=== PATIENT | female | born 1995 | race Caucasian/White ===

== ENCOUNTER 2016-07-13 09:56 | Emergency (ER) | payer OTHER ==
[~2016-07-13] VITALS: Ht 154.9 cm; Wt 66.4 kg
[2016-07-13 09:59] VITALS: TEMP 36.9; Ht 154.9 cm; Wt 66.4 kg
[2016-07-13] MEDS ORDERED: BCPILLS PO (10:22)
[2016-07-13] MEDS ORDERED: PHEN1CAP5 PO (10:22)
[2016-07-13] MEDS ORDERED: KETOROLAC TROMETHAMINE 30 MG/ML VIAL IV STA (10:25)
[2016-07-13] MEDS ORDERED: SODIUM CHLORIDE 0.9% 1000ML 1,000 ML IV STA (10:25)
[2016-07-13] MEDS ORDERED: DEXAMETHASONE SOD INJ 10 MG/ML VIAL IV ONE (10:30)
[2016-07-13] MEDS ORDERED: CLINDAMYCIN IV 900 MG in DEXTROSE 5% ADD-VANTAGE 100ML 100 ML IV ONE (10:30)
[2016-07-13 10:43] VITALS: O2SAT 98
[2016-07-13 11:07] LABS: URINE APPEARANCE CLEAR (CLEAR); URINE BILIRUBIN NEG (NEG); URINE COLOR YELLOW; URINE EPITHELIAL CELL AUTO >30 /lpf (0-5); URINE NITRITE NEG (NEG); URINE SPECIFIC GRAVITY 1.009 (1.000-1.030); UROBILINOGEN NEG (NEG)
[2016-07-13 11:10] LABS: MANUAL MICROSCOPIC REQUIRED? NO; REVIEW REQ? NO
[2016-07-13 11:19] LABS: CREATININE 0.81 mg/dl (0.60-1.20); POTASSIUM 3.8 mmol/L (3.5-5.1)
[2016-07-13 11:22] LABS: BASO % 0.1 %; BASO ABS # 0.01 K/uL (0-0.2); COMPLETE YES; HEMATOCRIT 40.9 % (37-47); IG% 0.3 %; LYMPH % 5.3 %; LYMPH ABS # 0.79 K/uL (1.2-3.4); MEAN CELL VOLUME 86.3 fL (80-100); MEAN CORPUSCULAR HEMOGLOBIN 30.2 pg (25-34); MONO % 3.6 %; NEUT % 90.7 %; PLATELET COUNT 257 K/uL (130-400); RED BLOOD COUNT 4.74 M/uL (4.2-5.4); WHITE BLOOD COUNT 14.96 K/uL (4.8-10.8)
[2016-07-13 11:39] VITALS: BP 105/67; PULSE 118; O2SAT 95
[2016-07-13] MEDS ORDERED: HYDR5SYP11 PO (11:48)
[2016-07-13] MEDS ORDERED: CLIN150C PO (11:48)
--- NOTE | 2016-07-13 11:56 | DIAGNOSTIC IMAGING REPORT ---
SOFT TISSUE NECK CLINICAL HISTORY: Pt c/o tonsilitis. Sore throat. COMPARISON STUDY: None. FINDINGS: AP and lateral views of the neck were submitted for review. The trachea is midline and is pain. The lung apices are clear. The contours of the hypopharynx are within normal limits. The epiglottis and prevertebral soft tissues are normal in thickness. No radiopaque foreign bodies. The C2-C3 vertebral bodies and facets appear fused. IMPRESSION: The contours of the hypopharynx are within normal limits. Electronically signed by: Michael Isaac M.D. 07/13/2016 11:54 AM Dictated Date/Time: 07/13/2016 11:53 AM
--- NOTE | 2016-07-13 13:15 | EMERGENCY ROOM VISIT NOTE ---
History Report prepared by Hayes: Jaci Mar Under the Supervision of: Dr. Abdulaziz Cole M.D. First contact with patient: 10:03 Chief Complaint: SORETHROAT Stated Complaint: SORETHROAT History of Present Illness The patient is a 20 year old female who presents to the Emergency Room with complaints of a worsening sore throat since last evening. Currently, patient rates her discomfort as a 10/10, which increases with attempts of swallowing. The patient visited [facility] for her symptoms this morning, and was given 2 Tylenol as her temperature was found to be elevated at 103F. During her visit, she was tested for strep throat and influenza, which she states were negative, however, she was then referred to the ED as they noticed that her tonsils appeared to be bleeding. She does note the taste of blood when swallowing. Patient states that her cervical lymph nodes are swollen and tender, but she denies pain or stiffness to her posterior neck. She also denies rhinorrhea, cough, chest pain, shortness of breath, abdominal pain, nausea, vomiting, diarrhea or urinary symptoms. Source of History: patient Onset: last evening Position: throat Symptom Intensity: 10/10 Quality: other (sore) Timing: worsening Modifying Factors (Worsening): other (swallowing) Associated Symptoms: + fevers, No SOB, No abdominal pain, No chest pain, No diarrhea, No nausea, No neck pain (but has pain and swelling to cervical lymph nodes), No urinary symptoms, No vomiting Review of Systems See HPI for pertinent positives & negatives. A total of 10 systems reviewed and were otherwise negative. Past Medical & Surgical Medical Problems: (1) HTN (hypertension) Surgical Problems: (1) History of appendectomy Family History Diabetes mellitus Hypertension Social History Smoking Status: Never Smoker Marital Status: single Housing Status: lives with roommate Occupation Status: [employer] student Current/Historical Medications Scheduled Control Pills ( Control Pills), 1 TAB PO DAILY Clindamycin Hcl (Cleocin), 300 MG PO QID Phenylephrine-Chlorpheniramine ([place] Plus Cold &), 2 CAP PO DIRECTED Scheduled PRN Hydrocodone W/ Homatropine (Hycodan 5/1.5MG 5 Ml), 5 ML PO HS PRN for Pain Allergies Coded Allergies: No Known Allergies (Unverified , 07/13/16) Physical Exam Vital Signs Date Time Temp Pulse Resp B/P Pulse Ox O2 Delivery O2 Flow Rate FiO2 07/13/16 11:39 118 18 105/67 95 Room Air 07/13/16 10:59 126 07/13/16 10:43 98 Room Air 07/13/16 09:59 36.9 124 20 119/79 98 Room Air 07/13/16 09:59 98 Room Air Physical Exam GENERAL: Patient is a healthy-appearing well-nourished HEAD: Normocephalic atraumatic EYES: Ocular movements intact pupils equal and react to light OROPHARYNX: Able to swallow own saliva. Hemorrhagic blisters present on the tonsils, bilaterally. No active bleeding. No evidence of abscess. NECK: Anterior lymphadenopathy along the cervical chains. No evidence of meningitis or encephalitis. CHEST: Good equal expansion LUNGS: Clear and equal to auscultation CARDIAC: Normal S1 and S2 ABDOMEN: Soft nontender no guarding BACK: No CVA tenderness EXTREMITIES: No pain upon palpation normal muscle strength in all groups no clubbing cyanosis or edema NEURO: Patient is following commands is answering questions appropriately. Alert and oriented x3 Cranial Nerves 2-12 grossly intact Medical Decision & Procedures ER Provider Diagnostic Interpretation: X-ray results as stated below per interpretation by me and the radiologist: SOFT TISSUE NECK CLINICAL HISTORY: Pt c/o tonsilitis. Sore throat. COMPARISON STUDY: None. FINDINGS: AP and lateral views of the neck were submitted for review. The trachea is midline and is pain. The lung apices are clear. The contours of the hypopharynx are within normal limits. The epiglottis and prevertebral soft tissues are normal in thickness. No radiopaque foreign bodies. The C2-C3 vertebral bodies and facets appear fused. IMPRESSION: The contours of the hypopharynx are within normal limits. Electronically signed by: Michael Isaac M.D. 07/13/2016 11:54 AM Dictated Date/Time: 07/13/2016 11:53 AM Laboratory Results 07/13/16 10:49 Red Blood Count 4.74, Mean Corpuscular Volume 86.3, Mean Corpuscular Hemoglobin 30.2, Mean Corpuscular Hemoglobin Concent 35.0, Mean Platelet Volume 10.0, Neutrophils (%) (Auto) 90.7, Lymphocytes (%) (Auto) 5.3, Monocytes (%) (Auto) 3.6, Eosinophils (%) (Auto) 0.0, Basophils (%) (Auto) 0.1, Neutrophils # (Auto) 13.58, Lymphocytes # (Auto) 0.79, Monocytes # (Auto) 0.54, Eosinophils # (Auto) 0.00, Basophils # (Auto) 0.01 07/13/16 10:49 Test 07/13/16 10:49 White Blood Count 14.96 K/uL (4.8-10.8) Red Blood Count 4.74 M/uL (4.2-5.4) Hemoglobin 14.3 g/dL (12.0-16.0) Hematocrit 40.9 % (37-47) Mean Corpuscular Volume 86.3 fL (80-100) Mean Corpuscular Hemoglobin 30.2 pg (25-34) Mean Corpuscular Hemoglobin Concent 35.0 g/dl (32-36) Platelet Count 257 K/uL (130-400) Mean Platelet Volume 10.0 fL (7.4-10.4) Neutrophils (%) (Auto) 90.7 % Lymphocytes (%) (Auto) 5.3 % Monocytes (%) (Auto) 3.6 % Eosinophils (%) (Auto) 0.0 % Basophils (%) (Auto) 0.1 % Neutrophils # (Auto) 13.58 K/uL (1.4-6.5) Lymphocytes # (Auto) 0.79 K/uL (1.2-3.4) Monocytes # (Auto) 0.54 K/uL (0.11-0.59) Eosinophils # (Auto) 0.00 K/uL (0-0.5) Basophils # (Auto) 0.01 K/uL (0-0.2) RDW Standard Deviation 40.2 fL (36.4-46.3) RDW Coefficient of Variation 12.6 % (11.5-14.5) Immature Granulocyte % (Auto) 0.3 % Immature Granulocyte # (Auto) 0.04 K/uL (0.00-0.02) Urine Color YELLOW Urine Appearance CLEAR (CLEAR) Urine pH 6.0 (4.5-7.5) Urine Specific Seanor 1.009 (1.000-1.030) Urine Protein NEG (NEG) Urine Glucose (UA) NEG (NEG) Urine Ketones NEG (NEG) Urine Occult Blood NEG (NEG) Urine Nitrite NEG (NEG) Urine Bilirubin NEG (NEG) Urine Urobilinogen NEG (NEG) Urine Leukocyte Esterase TRACE (NEG) Urine WBC (Auto) 1-5 /hpf (0-5) Urine RBC (Auto) 0-4 /hpf (0-4) Urine Hyaline Casts (Auto) 1-5 /lpf (0-5) Urine Epithelial Cells (Auto) >30 /lpf (0-5) Urine Bacteria (Auto) 2+ (NEG) Anion Gap 13.0 mmol/L (3-11) Est Creatinine Clear Calc Drug Dose 97.4 ml/min Estimated GFR () 122.0 Estimated GFR (Non- 105.3 BUN/Creatinine Ratio 14.0 (10-20) Calcium Level 10.0 mg/dl (8.5-10.1) Total Bilirubin 0.4 mg/dl (0.2-1) Direct Bilirubin 0.1 mg/dl (0-0.2) Aspartate Amino Transf (AST/SGOT) 10 U/L (15-37) Alanine Aminotransferase (ALT/SGPT) 21 U/L (12-78) Alkaline Phosphatase 56 U/L (45-117) Total Protein 8.5 gm/dl (6.4-8.2) Albumin 4.3 gm/dl (3.4-5.0) Monoscreen NEG (NEG) Labs reviewed by ED physician. Medications Administered Medications (Trade) Dose Ordered Sig/Marvin Route Start Time Stop Time Status Last Admin Dose Admin Sodium Chloride (Nss 1000ml) 1,000 ml @ 999 mls/hr Q1H1M STAT IV 07/13/16 10:25 07/13/16 11:25 DC 07/13/16 10:48 999 MLS/HR Ketorolac Tromethamine (Toradol Inj) 30 mg NOW STAT IV 07/13/16 10:25 07/13/16 10:28 DC 07/13/16 10:47 30 MG Dexamethasone Sodium Phosphate 10 mg 10 mg NOW ONCE IV 07/13/16 10:30 07/13/16 10:31 DC 07/13/16 10:47 10 MG Clindamycin Phosphate/Dextrose (Cleocin Iv/ Dextrose Add-Hiram 100ML) 106 ml @ 100 mls/hr ONE ONCE IV 07/13/16 10:30 07/13/16 11:33 DC 07/13/16 10:47 100 MLS/HR ED Course 1005: Past medical records reviewed. The patient was evaluated in room A12. A complete history and physical examination was performed. 1025: Toradol 30 mg IV and NSS bolus IV were ordered. 1030: The patient requested that I speak to her parents on the phone to update them on her case. I was able to get in touch with them. They verbalized understanding and agreement with the treatment plan. 1030: Clindamycin Phosphate 900 mg/ Dextrose 106 ml @ 100 mls/hr IV and Decadron 10 mg IV were ordered. 1140: Upon revaluation, the patient was doing well and appeared to be resting more comfortably. I updated her on the results of her radiology reports and lab tests. Discharge instructions were also discussed at this time. She verbalized her understanding and agreement with the treatment plan, and she is now ready for disposition. Medical Decision Differential diagnosis: Etiologies such as viral syndrome, tonsillitis, streptococcal pharyngitis, mononucleosis, peritonsillar abscess, retropharyngeal abscess, otitis, pneumonia , influenza, as well as others were entertained. This is a 20-year-old female who presents emergency department complaining of sore throat. The patient had a strep test as well as a mono test performed at [facility] and she was sent here for her tachycardia. I will note that the patient does not appear toxic and is afebrile here. An IV was established, patient given normal saline bolus, Decadron and clindamycin. Repeat examination revealed much improvement patient's symptoms. The patient was started on clindamycin for tonsillitis pending mono culture results. Her Monospot he was negative. I did discuss the patient with her parents are also in agreement with the treatment plan. I do believe that the patient as well as to be discharged home. I'll note she is able to swallow her own saliva and has no evidence of meningitis encephalitis on examination. Patient was in agreement with the treatment plan. Impression Primary Impression: Acute bacterial tonsillitis Scribe Attestation The scribe's documentation has been prepared under my direction and personally reviewed by me in its entirety. I confirm that the note above accurately reflects all work, treatment, procedures, and medical decision making performed by me. Departure Information Dispostion Home / Self-Care Prescriptions Hydrocodone W/ Homatropine (HYCODAN 5/1.5MG 5 ML) 1 Syp Syp 5 ML PO HS Y for Pain, #120 ML Prov: Abdulaziz Cole MD 07/13/16 Clindamycin Hcl (CLEOCIN) 150 Mg Cap 300 MG PO QID for 10 Days, #80 CAP Prov: Abdulaziz Cole MD 07/13/16 Referrals No Doctor, Assigned (PCP) Forms HOME CARE DOCUMENTATION FORM, IMPORTANT VISIT INFORMATION Patient Instructions A Signature Page, My [facility] [address] Additional Instructions You received narcotic or benzodiazepene medication while in the emergency room today. Do not drive, operate heavy machinery, or drink alcohol under the influence of this medication. Take 1000 mg Tylenol every 6 hours Take oxy for breakthrough pain Culture results are usually available in approx 48 hours You have been examined and treated today on an emergency basis only. This is not a substitute for, or an effort to provide, complete comprehensive medical care. It is impossible to recognize and treat all injuries or illnesses in a single emergency department visit. It is therefore important that you follow up closely with [facility]. Call as soon as possible for an appointment. Thank you for your time and consideration. I look forward to speaking with you again soon. Please don't hesitate to call us if you have any questions.
[2016-07-15 19:08] LABS: EBV EARLY ANTIGEN AB <0.91 INDEX; EPSTEIN BARR VIR CAPSID IGG <0.91 INDEX
== END 2016-07-13 11:58 | disposition home or self-care (01) ==
LOC: C.EDB 09:58 → C.EDA 11:58
DX: J03.90 Acute tonsillitis, unspecified (principal); B96.89 Other specified bacterial agents as the cause of diseases classified elsewhere; I10 Essential (primary) hypertension; Z90.49 Acquired absence of other specified parts of digestive tract; Z79.3 Long term (current) use of hormonal contraceptives